=== PATIENT | female | born 1955 | race Caucasian/White ===

== ENCOUNTER → 2018-05-09 | Outpatient (CLI) | payer OTHER, BC ==
[~2018-05-09] MED LIST: OMNIPAQUE 350 MG/ML, 100ML BOTTLE ONE
== END | disposition home or self-care (01) ==
LOC: RAD 13:01
PROVIDERS: ATTEND Internal Medicine
DX: K76.89 Other specified diseases of liver (principal); K59.00 Constipation, unspecified; K38.8 Other specified diseases of appendix
CPT/HCPCS: 70450; 74177; Q9967

== ENCOUNTER → 2018-08-04 | Outpatient (CLI) | payer OTHER, BC | END | disposition home or self-care (01) | LOC: CFH 11:49 | PROVIDERS: ATTEND Nurse Practitioner Gerontology | DX: K59.00 Constipation, unspecified (principal); M51.36 Other intervertebral disc degeneration, lumbar region; M47.816 Spondylosis without myelopathy or radiculopathy, lumbar region; K76.89 Other specified diseases of liver | CPT/HCPCS: 74177; 82565; Q9967 ==

== ENCOUNTER 2019-05-05 17:48 | Emergency (ER) | payer MEDICARE, OTHER, BC ==
[~2019-05-05] VITALS: Ht 172.7 cm; Wt 61.0 kg
[2019-05-05] MEDS ORDERED: HYDROmorphone 1 MG/ML, 1ML VIAL ONE ×2 (18:16→19:38)
[2019-05-05] MEDS: HYDROmorphone 1 MG/ML, 1ML INJ IVPush PRN ×2 (18:20→19:41)
[2019-05-05] MEDS ORDERED: PROPOFOL 10 MG/ML, 20ML IVPush ONE (18:30)
[2019-05-05] MEDS ORDERED: PROPOFOL 10 MG/ML, 20ML ONE (18:30)
--- NOTE | 2019-05-05 18:39 | NUR ---
Rober aSnchez, : [phone] cell:
--- NOTE | 2019-05-05 18:55 | NUR ---
see paperwork for concious sedation paperwork, pt has returned to baseline at this time. Bedside report to Eric BARKSDALE.
--- NOTE | 2019-05-05 18:56 | NUR ---
received report from APOLONIA Paulino. ERP and ct technologist splinting left wrist / forearm.
[2019-05-05] MEDS ORDERED: CITA20TA9 PO (19:05)
[2019-05-05] MEDS ORDERED: CHOL100012 PO (19:05)
--- NOTE | 2019-05-05 19:19 | NUR ---
post reduction X ray done. ERP talking to Ortho .
[2019-05-05] MEDS ORDERED: ASCO-90 PO (19:28)
[2019-05-05] MEDS ORDERED: CALCIUM PO (19:30)
--- NOTE | 2019-05-05 19:45 | NUR ---
patient states pain radiates to forearm/ upper arm. re-medicated for pain. mouth swab provided.
--- NOTE | 2019-05-05 19:49 | NUR ---
patient to CT scan.
--- NOTE | 2019-05-05 20:02 | NUR ---
back from CT scan. awaiting result.
--- NOTE | 2019-05-05 20:40 | NUR ---
CT scan resulted. chart up for MD to re-eval.
--- NOTE | 2019-05-05 20:43 | NUR ---
ERP at bedside for re-eval.
--- NOTE | 2019-05-05 21:16 | NUR ---
patient discharged with prescription and instructions. verbalized understanding.
[2019-05-05 21:17] VITALS: BP 103/59
== END 2019-05-05 21:19 | disposition home or self-care (01) ==
LOC: ED 20:31
DX: S52.572A Other intraarticular fracture of lower end of left radius, initial encounter for closed fracture (principal); S52.692A Other fracture of lower end of left ulna, initial encounter for closed fracture; W19.XXXA Unspecified fall, initial encounter; Y93.K1 Activity, walking an animal; Y92.413 State road as the place of occurrence of the external cause; Y99.8 Other external cause status
CPT/HCPCS: 25605; 73100; 73200; 96374; 96375; 99285; J1170; J2704